=== PATIENT | female | born 1980 | race Caucasian/White ===

== ENCOUNTER 2017-01-23 17:33 | Emergency (ER) | payer SELFPAY ==
[2017-01-23] MEDS ORDERED: NO HOME MEDICATION XX (18:03)
[2017-01-23] MEDS ORDERED: NORCO 5/3251 TAB PO (18:34)
== END 2017-01-23 19:12 ==
LOC: EDMED 17:33
DX: S90.31XA Contusion of right foot, initial encounter (principal); W20.8XXA Other cause of strike by thrown, projected or falling object, initial encounter; Y92.019 Unspecified place in single-family (private) house as the place of occurrence of the external cause